=== PATIENT | female | born 1985 | race Caucasian/White ===

== ENCOUNTER 2024-01-08 13:32 | Outpatient (CLI) | payer BC ==
[~2024-01-08 13:32] MED LIST: Magnevist 469MG/ML 20 ML VIAL ONE
== END 2024-01-08 13:33 | disposition home or self-care (01) ==
LOC: MRI 13:32
DX: E03.9 Hypothyroidism, unspecified (principal); G44.89 Other headache syndrome; R93.89 Abnormal findings on diagnostic imaging of other specified body structures
CPT/HCPCS: 70553; 76376; 76536